=== PATIENT | male | born 2000 | race Caucasian/White ===

== ENCOUNTER 2020-11-12 18:03 | Emergency (ER) | payer OTHER ==
[~2020-11-12] VITALS: Ht 172.7 cm; Wt 70.5 kg
[2020-11-12] MEDS ORDERED: PERTUSS(ACELL),DIPH,TET VAC/PF 0.5 ML SYRINGE IM. ONE (18:15)
[2020-11-12] MEDS ORDERED: HYDROCODONE/ACETAMINOPHEN 5-325 MG TABLET PO ONE (18:15)
[2020-11-12 19:33] VITALS: BP 141/88
== END 2020-11-12 20:52 | disposition home or self-care (01) ==
LOC: EMS 18:07
DX: S61.432A Puncture wound without foreign body of left hand, initial encounter (principal); X95.8XXA Assault by other firearm discharge, initial encounter; Y93.89 Activity, other specified; Y92.89 Other specified places as the place of occurrence of the external cause; Y99.8 Other external cause status
CPT/HCPCS: 90471; 90715; 99283

== ENCOUNTER 2020-11-14 19:49 | Emergency (ER) | payer OTHER ==
[~2020-11-14] VITALS: Ht 172.7 cm; Wt 81.8 kg
[2020-11-14 20:05] VITALS: BP 127/84
== END 2020-11-14 21:08 | disposition home or self-care (01) ==
LOC: EMS 19:49
DX: S61.432D Puncture wound without foreign body of left hand, subsequent encounter (principal); F12.90 Cannabis use, unspecified, uncomplicated; X58.XXXA Exposure to other specified factors, initial encounter
CPT/HCPCS: 99282; Z7502